=== PATIENT | male | born 1995 | race Caucasian/White ===

== ENCOUNTER 2018-07-14 21:28 | Inpatient (IN) | payer MEDICAID ==
[~2018-07-14] VITALS: Ht 177.8 cm; Wt 65.8 kg
[2018-07-14 22:57] LABS: microscopic required? NO
[2018-07-14 23:01] LABS: BASOPHIL % 0.2 % (0-2); PLATELET COUNT 299 x10^3mcL (130-400); RED CELL DISTRIBUTION WIDTH 13.1 % (11.5-14.5)
[2018-07-14 23:19] LABS: ALBUMIN 4.1 g/dL (3.4-5.0); ALKALINE PHOSPHATASE 178 U/L (46-116); ALT/SGPT 23 U/L (16-63); AST/SGOT 10 U/L (15-37); BILIRUBIN TOTAL 0.8 mg/dL (0.20-1.00); CALCIUM 8.8 mg/dL (8.5-10.1); CHLORIDE SERUM 93 mmol/L (98-107); CREATININE SERUM 1.4 mg/dL (0.7-1.3); GFR1 > 60 mL/min; POTASSIUM SERUM 4.2 mmol/L (3.5-5.1); SODIUM SERUM 129 mmol/L (136-145)
[2018-07-14 23:30] LABS: TOTAL PROTEIN, SERUM 8.5 g/dL (6.4-8.2)
[2018-07-14 23:32] LABS: CARBON DIOXIDE 9.3 mmol/L (21-32); GLUCOSE SERUM 581 mg/dL (74-106)
[2018-07-14 23:58] LABS: urine erythrocyte NEGATIVE (NEGATIVE)
[2018-07-15] VITALS (7 sets, daily range): BP systolic 99–118; BP diastolic 54–78; Ht 177.8 cm; Wt 65.8 kg
[2018-07-15 00:16] LABS: AMYLASE 25 U/L (25-115); LIPASE 93 IU/L (73-393); PHOSPHOROUS 4.2 mg/dL (2.5-4.9)
[2018-07-15 00:19] LABS: CHOLESTEROL 253 mg/dL (<200); TRIGLYCERIDES 758 mg/dL (<150)
[2018-07-15 00:20] LABS: CHOLESTEROL/HDL RATIO 8.2; HDL CHOLESTEROL 31 mg/dL (40-60)
[2018-07-15 00:32] LABS: FREE T4 0.95 ng/dL (0.76-1.46); FREE THYROXINE INDEX 1.9 ug/dL (1.4-4.5); T4(THYROXINE) 5.4 ug/dL (4.7-13.3)
[2018-07-15] MEDS ORDERED: TRESIBA FL100 UNIT/1 SQ (01:03)
[2018-07-15] MEDS ORDERED: NOVOLOG100 U/ML SC (01:03)
[2018-07-15 05:23] LABS: CALCIUM 8.4 mg/dL (8.5-10.1); CARBON DIOXIDE 12.2 mmol/L (21-32); CHLORIDE SERUM 104 mmol/L (98-107); CREATININE SERUM 1.1 mg/dL (0.7-1.3); GFR1 > 60 mL/min; GLUCOSE SERUM 197 mg/dL (74-106); PHOSPHOROUS 2.2 mg/dL (2.5-4.9); POTASSIUM SERUM 3.4 mmol/L (3.5-5.1); SODIUM SERUM 133 mmol/L (136-145)
[2018-07-15 08:22] LABS: T3 TOTAL 0.44 ng/mL
[2018-07-15 08:38] LABS: CALCIUM 7.4 mg/dL (8.5-10.1); CARBON DIOXIDE 13.2 mmol/L (21-32); CHLORIDE SERUM 106 mmol/L (98-107); CREATININE SERUM 1.1 mg/dL (0.7-1.3); GFR1 > 60 mL/min; GLUCOSE SERUM 172 mg/dL (74-106); MAGNESIUM 1.7 mg/dL (1.8-2.4); PHOSPHOROUS 2.6 mg/dL (2.5-4.9); POTASSIUM SERUM 3.4 mmol/L (3.5-5.1); SODIUM SERUM 136 mmol/L (136-145)
[2018-07-15 13:19] LABS: CALCIUM 8.3 mg/dL (8.5-10.1); CHLORIDE SERUM 105 mmol/L (98-107); CREATININE SERUM 1.1 mg/dL (0.7-1.3); GFR1 > 60 mL/min; GLUCOSE SERUM 129 mg/dL (74-106); MAGNESIUM 1.7 mg/dL (1.8-2.4); PHOSPHOROUS 2.6 mg/dL (2.5-4.9); POTASSIUM SERUM 3.6 mmol/L (3.5-5.1); SODIUM SERUM 136 mmol/L (136-145)
[2018-07-15 16:46] LABS: CALCIUM 8.3 mg/dL (8.5-10.1); CARBON DIOXIDE 18.5 mmol/L (21-32); CHLORIDE SERUM 104 mmol/L (98-107); GFR1 > 60 mL/min; GLUCOSE SERUM 123 mg/dL (74-106); MAGNESIUM 1.7 mg/dL (1.8-2.4); PHOSPHOROUS 2.2 mg/dL (2.5-4.9); POTASSIUM SERUM 3.2 mmol/L (3.5-5.1); SODIUM SERUM 135 mmol/L (136-145)
[2018-07-15 20:51] LABS: CALCIUM 8.3 mg/dL (8.5-10.1); CARBON DIOXIDE 19.4 mmol/L (21-32); CHLORIDE SERUM 108 mmol/L (98-107); CREATININE SERUM 1.1 mg/dL (0.7-1.3); GFR1 > 60 mL/min; GLUCOSE SERUM 198 mg/dL (74-106); MAGNESIUM 1.7 mg/dL (1.8-2.4); PHOSPHOROUS 2.4 mg/dL (2.5-4.9); SODIUM SERUM 137 mmol/L (136-145)
[2018-07-15 23:26] LABS: AMPHETAMINE QUAL UR NONE DETECTED (See below)
[2018-07-16 00:21] LABS: BASOPHIL % 0.5 % (0-2); PLATELET COUNT 251 x10^3mcL (130-400); RED CELL DISTRIBUTION WIDTH 12.8 % (11.5-14.5)
[2018-07-16 00:29] LABS: CALCIUM 8.1 mg/dL (8.5-10.1); CARBON DIOXIDE 21.8 mmol/L (21-32); CHLORIDE SERUM 104 mmol/L (98-107); CREATININE SERUM 0.9 mg/dL (0.7-1.3); GFR1 > 60 mL/min; GLUCOSE SERUM 134 mg/dL (74-106); MAGNESIUM 1.6 mg/dL (1.8-2.4); POTASSIUM SERUM 3.4 mmol/L (3.5-5.1); SODIUM SERUM 136 mmol/L (136-145)
[2018-07-16 05:36] LABS: CARBON DIOXIDE 20.4 mmol/L (21-32); CHLORIDE SERUM 108 mmol/L (98-107); CREATININE SERUM 0.9 mg/dL (0.7-1.3); GFR1 > 60 mL/min; GLUCOSE SERUM 211 mg/dL (74-106); MAGNESIUM 1.6 mg/dL (1.8-2.4); PHOSPHOROUS 2.9 mg/dL (2.5-4.9); POTASSIUM SERUM 3.2 mmol/L (3.5-5.1); SODIUM SERUM 140 mmol/L (136-145)
[2018-07-16 07:27] VITALS: BP 101/62
[2018-07-16 12:15] VITALS: BP 113/75
[2018-07-16 17:36] VITALS: BP 109/68
[2018-07-16 20:57] VITALS: BP 109/73
[2018-07-17 06:20] LABS: CALCIUM 8.1 mg/dL (8.5-10.1); CARBON DIOXIDE 26.3 mmol/L (21-32); CHLORIDE SERUM 105 mmol/L (98-107); CREATININE SERUM 0.6 mg/dL (0.7-1.3); GFR1 > 60 mL/min; GLUCOSE SERUM 75 mg/dL (74-106); MAGNESIUM 1.6 mg/dL (1.8-2.4); PHOSPHOROUS 4.5 mg/dL (2.5-4.9); SODIUM SERUM 140 mmol/L (136-145)
[2018-07-17 06:34] LABS: POTASSIUM SERUM 2.8 mmol/L (3.5-5.1)
[2018-07-17 07:27] LABS: BASOPHIL % 0.5 % (0-2); PLATELET COUNT 230 x10^3mcL (130-400); RED CELL DISTRIBUTION WIDTH 12.7 % (11.5-14.5)
[2018-07-17 08:36] VITALS: BP 95/59
[2018-07-17] MEDS ORDERED: LANTI SQ (09:17)
[2018-07-17 13:46] VITALS: BP 95/59
== END 2018-07-17 14:41 | disposition home or self-care (01) | DRG 420 ==
LOC: ED 21:28 → IC 23:48 → MU 07-16 17:22
PROVIDERS: Emergency Medicine; Internal Medicine
DX: E10.10 Type 1 diabetes mellitus with ketoacidosis without coma (principal); N17.0 Acute kidney failure with tubular necrosis; E87.1 Hypo-osmolality and hyponatremia; E87.6 Hypokalemia; E83.51 Hypocalcemia; F12.10 Cannabis abuse, uncomplicated; E78.5 Hyperlipidemia, unspecified; Z79.4 Long term (current) use of insulin; Z68.20 Body mass index [BMI] 20.0-20.9, adult; F17.210 Nicotine dependence, cigarettes, uncomplicated
CPT/HCPCS: 82962; 83880; 84439; G0480; J1815; J2405; J3010; J3480; J3490; J7030; J7050; Q0092